=== PATIENT | female | born 1955 | race Caucasian/White ===

== ENCOUNTER → 2020-04-09 | Outpatient (CLI) | payer OTHER, MEDICARE ==
[~2020-04-09] MED LIST: BAMLANIVIMAB (EUA) 700 MG in NS 250ML 180 ML IV ONE
[2020-04-09 13:15] VITALS: BP 183/95
[2020-04-09 13:49] VITALS: BP 144/57
[2020-04-09 14:35] VITALS: BP 155/61
[2020-04-09 15:30] VITALS: BP 158/63
== END | disposition home or self-care (01) ==
LOC: OPTX 13:10
PROVIDERS: ATTEND Physician Assistant
DX: U07.1 COVID-19 (principal)
CPT/HCPCS: J7050; M0239; Q0239; 96365; 96366